=== PATIENT | male | born 1950 | race African-American/Black ===

== ENCOUNTER 2023-07-22 22:51 | Inpatient (IN) | payer BC, MEDICAID ==
[~2023-07-22] VITALS: Ht 182.9 cm; Wt 90.7 kg
[2023-07-22] MEDS: IV NS 0.9% 500 ML BAG IV ONE (23:30)
[2023-07-22] MEDS ORDERED: CEFEPIME 1 GM VIAL ONE (23:33)
[2023-07-22] MEDS ORDERED: ACETAMINOPHEN 650 MG/SUPP.RECT RC ONE (23:33)
[2023-07-22] MEDS ORDERED: VANCOMYCIN 1 GM /D5W 250 ML PB IV ONE (23:33)
[2023-07-22] MEDS: ACETAMINOPHEN 650 MG/SUPP.RECT RC ONE (23:40)
[2023-07-22] MEDS: CEFEPIME 1 GM in IV D5W 50 ML IV ONE (23:40)
[2023-07-22 23:46] LABS: BASOPHILS # (AUTO) 0.1 K/uL (0.0-0.2); BASOPHILS % (AUTO) 0.4 % (0.0-2.0); EOSINOPHILS % (AUTO) 0.3 % (0.0-6.0); HEMATOCRIT 30 % (39-51); HEMOGLOBIN 9.9 g/dL (13.5-17.5); LYMPHOCYTES # (AUTO) 0.6 K/uL (0.8-4.8); MEAN CORPUSCULAR HEMOGLOBIN 26 PG (26.0-33.0); MEAN CORPUSCULAR HGB CONC 33 g/dl (31.0-36.0); MEAN CORPUSCULAR VOLUME 80 fL (80-96); MONOCYTES # (AUTO) 0.5 K/uL (0.1-1.30); MONOCYTES % (AUTO) 3.8 % (2.0-12.0); NEUTROPHILS # (AUTO) 10.8 K/uL (1.8-8.9); NEUTROPHILS % (AUTO) 90.5 % (43.0-81.0); PLATELET COUNT (AUTO) 273 K/uL (150-450); RED BLOOD CELL COUNT(AUTO) 3.81 MIL/uL (4.5-6.0); RED CELL DISTRIBUTION WIDTH 16.8 % (11.5-15.0)
[2023-07-23] MEDS: IV LR 1000 ML 1,000 ML BAG IV ONE
[2023-07-23] MEDS: VANCOMYCIN 1 GM in IV D5W 250 ML IV ONE
[2023-07-23 00:04] LABS: SERUM AMMONIA 20 umol/L (11-32)
[2023-07-23 00:06] LABS: ALANINE AMINOTRANSFERASE 28 U/L (12-78); ALBUMIN 2.1 g/dL (3.4-5.0); ALKALINE PHOSPHATASE 134 U/L (46-116); ASPARTATE AMINOTRANSFERASE 43 U/L (15-37); BILIRUBIN,DIRECT 0.1 mg/dL (0.0-0.2); BILIRUBIN,TOTAL 0.5 mg/dL (0.2-1.0); CALCIUM, SERUM 9.7 mg/dL (8.5-10.1); CARBON DIOXIDE 29 mmol/L (21-32); CHLORIDE 97 mmol/L (98-107); CREATININE 1.5 mg/dL (0.6-1.3); GLUCOSE 113 mg/dL (74-106); POTASSIUM 4.2 mmol/L (3.5-5.1); SODIUM SERUM 136 mmol/L (136-145); TOTAL PROTEIN, SERUM 8.4 g/dL (6.4-8.2); UREA NITROGEN, BLOOD 17 mg/dL (7-18)
[2023-07-23 00:09] LABS: ACETAMINOPHEN <10 ug/ml (10-30); ALCOHOL, BLOOD < 3 mg/dL (0-10); SALICYLATE 1.9 mg/dL (2.8-20.0)
[2023-07-23 00:17] LABS: LACTIC ACID 3.6 mmol/L (0.4-2.0); THYROID STIMULATING HORMONE 2.808 uIU/mL (0.358-3.74)
[2023-07-23 01:13] LABS: APPEARANCE,URINE SLIGHTLY CLOUDY (CLEAR); BILIRUBIN,URINE 1+ (NEGATIVE); BLOOD, URINE 3+ Ery/uL (NEGATIVE); COLOR,URINE DARK YELLOW (YELLOW); KETONES,URINE NEGATIVE (NEGATIVE); LEUKOCYTE ESTERASE ,URINE NEGATIVE (NEGATIVE); NITRITE, URINE NEGATIVE (NEGATIVE); PROTEIN,URINE 3+ mg/dl (NEGATIVE); UGLUCOSE NEGATIVE (NEGATIVE)
[2023-07-23 01:14] LABS: ADD URINE CULTURE NO; BACTERIA,URINE Rare /HPF (None Seen); RBC,URINE 21-50 /HPF (0-2); SQUAMOUS EPITHELIAL CELL,UR Rare /HPF (None Seen)
[2023-07-23 01:30] LABS: BARBITURATE, URINE NEGATIVE (NEGATIVE); BENZODIAZEPINE, URINE NEGATIVE (NEGATIVE); CANNABINOID, URINE NEGATIVE (NEGATIVE); COCCAINE, URINE NEGATIVE (NEGATIVE); PHENCYCLIDINE SCREEN,URINE NEGATIVE (NEGATIVE)
[2023-07-23 01:35] LABS: AMPHETAMINE, URINE POSITIVE (NEGATIVE); OPIATE, URINE POSITIVE (NEGATIVE)
[2023-07-23 01:52] LABS: PHOSPHORUS 3.8 mg/dL (2.5-4.9)
[2023-07-23] MEDS ORDERED: ASPI-1169 PO (05:05)
[2023-07-23] MEDS ORDERED: FERR324T PO (05:05)
[2023-07-23] MEDS ORDERED: CALC-770 PO (05:05)
[2023-07-23] MEDS ORDERED: AMIO100T4 PO (05:05)
[2023-07-23] MEDS ORDERED: APIX5TAB PO (05:05)
[2023-07-23] MEDS ORDERED: MEXI150C16 PO (05:05)
[2023-07-23] MEDS ORDERED: METO-358 PO (05:05)
[2023-07-23] MEDS ORDERED: FERR240T5 PO (05:05)
[2023-07-23] MEDS ORDERED: FURO-145 PO (05:05)
[2023-07-23] MEDS ORDERED: SPIR25TA6 PO (05:05)
[2023-07-23] MEDS ORDERED: SACU1TAB7 PO (05:05)
[2023-07-23] MEDS ORDERED: PANT40TA49 PO (05:05)
[2023-07-23] MEDS ORDERED: ATOR40TA PO (05:05)
[2023-07-23] MEDS ORDERED: FAMO20TA8 PO (05:05)
[2023-07-23] MEDS ORDERED: DOCU250C14 PO (05:05)
[2023-07-23] MEDS ORDERED: CYAN500T64 PO (05:05)
[2023-07-23] MEDS ORDERED: DONE5TAB34 PO (05:05)
[2023-07-23] MEDS: IV NS 0.9% 1,000 ML BAG IV ONE (07:26)
[2023-07-23 08:00] VITALS: BP 95/54; TEMP 98.2; O2SAT 99
[2023-07-23 08:44] LABS: CALCIUM, SERUM 8.6 mg/dL (8.5-10.1); CARBON DIOXIDE 23 mmol/L (21-32); CHLORIDE 104 mmol/L (98-107); CREATININE 1.3 mg/dL (0.6-1.3); GLUCOSE 122 mg/dL (74-106); POTASSIUM 2.9 mmol/L (3.5-5.1); SODIUM SERUM 138 mmol/L (136-145); UREA NITROGEN, BLOOD 15 mg/dL (7-18)
[2023-07-23 08:58] LABS: THYROID STIMULATING HORMONE 1.316 uIU/mL (0.358-3.74)
[2023-07-23 09:10] LABS: BASOPHILS % (AUTO) 0.3 % (0.0-2.0); EOSINOPHILS % (AUTO) 0.1 % (0.0-6.0); HEMATOCRIT 24 % (39-51); HEMOGLOBIN 7.8 g/dL (13.5-17.5); LYMPHOCYTES # (AUTO) 0.6 K/uL (0.8-4.8); LYMPHOCYTES % (AUTO) 5.5 % (20.0-44.0); MEAN CORPUSCULAR HEMOGLOBIN 26 PG (26.0-33.0); MEAN CORPUSCULAR HGB CONC 33 g/dl (31.0-36.0); MEAN CORPUSCULAR VOLUME 79 fL (80-96); MONOCYTES # (AUTO) 0.7 K/uL (0.1-1.30); MONOCYTES % (AUTO) 6.8 % (2.0-12.0); NEUTROPHILS # (AUTO) 8.9 K/uL (1.8-8.9); NEUTROPHILS % (AUTO) 87.3 % (43.0-81.0); PLATELET COUNT (AUTO) 207 K/uL (150-450); RED BLOOD CELL COUNT(AUTO) 3.02 MIL/uL (4.5-6.0); RED CELL DISTRIBUTION WIDTH 16.7 % (11.5-15.0); WHITE BLOOD COUNT (AUTO) 10.2 K/uL (4.3-11.0)
[2023-07-23] MEDS: POTASSIUM CHLORIDE 20 MEQ TAB.PRT.SR PO ONE (09:43)
[2023-07-23] MEDS: CEFTRIAXONE 1 G in IV D5W 50 ML IV SCH (10:04)
[2023-07-23 12:00] VITALS: BP 110/66; TEMP 98.2; O2SAT 99
[2023-07-23 16:00] VITALS: BP 118/66; TEMP 98.2; O2SAT 100
[2023-07-23] MEDS: ATORVASTATIN 40 MG TABLET PO SCH (16:23)
[2023-07-23] MEDS: FAMOTIDINE (20 MG) 20 MG TABLET PO SCH (16:23)
[2023-07-23 20:00] VITALS: BP 98/53; TEMP 97.9; O2SAT 99
[2023-07-23] MEDS: DOCUSATE SODIUM 250 MG CAPSULE PO SCH (20:46)
[2023-07-23] MEDS: AMIODARONE HCL 200 MG TABLET PO SCH (20:52)
[2023-07-23] MEDS: APIXABAN 5 MG TABLET PO SCH (20:55)
[2023-07-23] MEDS: METOPROLOL SUCCINATE 50 MG TAB.SR.24H PO SCH (20:56)
[2023-07-23] MEDS: ENTRESTO PO SCH (20:56)
[2023-07-23] MEDS: MEXILETINE 150 MG PO SCH (20:56)
[2023-07-23] MEDS ORDERED: MEXILETINE HCL 150 MG CAPSULE PO SCH (21:00)
[2023-07-23] MEDS ORDERED: SACUBITRIL/VALSARTAN 1 EACH TABLET PO SCH (21:00)
[2023-07-24] VITALS (9 sets, daily range): BP systolic 107–121; BP diastolic 63–72; TEMP 97.3–98.3; O2SAT 96–100
[2023-07-24] MEDS: PANTOPRAZOLE 40 MG TABLET.DR PO SCH (08:30)
[2023-07-24] MEDS: CYANOCOBALAMIN 500 MCG TABLET PO SCH (08:30)
[2023-07-24] MEDS: ASPIRIN 81 MG TAB.CHEW PO SCH (08:30)
[2023-07-24] MEDS: DONEPEZIL 5 MG TABLET PO SCH (08:30)
[2023-07-24] MEDS: FERROUS SULFATE (325 MG) 325 MG/TAB TABLET PO SCH (08:31)
[2023-07-24] MEDS: SPIRONOLACTONE 25 MG TABLET PO SCH (08:31)
[2023-07-24] MEDS: POTASSIUM CHLORIDE 20 MEQ TAB.PRT.SR PO ONE (08:49)
[2023-07-24] MEDS: CEFTRIAXONE 2 G in IV D5W 100 ML IV SCH (10:43)
[2023-07-24] MEDS: ACETYLCYSTEINE 20% SOLN 800 MG/4 ML VIAL NEB SCH (23:28)
[2023-07-24] MEDS: ALBUTEROL FS 2.5 MG/0.5 ML VIAL.NEB NEB PRN (23:29)
[2023-07-25] VITALS (9 sets, daily range): BP systolic 100–125; BP diastolic 55–72; TEMP 97.5–98.8; O2SAT 97–100
[2023-07-25 08:14] LABS: BASOPHILS % (AUTO) 0.7 % (0.0-2.0); EOSINOPHILS # (AUTO) 0.1 K/uL (0.0-0.7); EOSINOPHILS % (AUTO) 1.4 % (0.0-6.0); HEMATOCRIT 25 % (39-51); LYMPHOCYTES # (AUTO) 0.6 K/uL (0.8-4.8); LYMPHOCYTES % (AUTO) 10.5 % (20.0-44.0); MEAN CORPUSCULAR HEMOGLOBIN 26 PG (26.0-33.0); MEAN CORPUSCULAR HGB CONC 32 g/dl (31.0-36.0); MEAN CORPUSCULAR VOLUME 80 fL (80-96); MONOCYTES # (AUTO) 0.5 K/uL (0.1-1.30); MONOCYTES % (AUTO) 9.5 % (2.0-12.0); NEUTROPHILS # (AUTO) 4.4 K/uL (1.8-8.9); NEUTROPHILS % (AUTO) 77.9 % (43.0-81.0); PLATELET COUNT (AUTO) 220 K/uL (150-450); RED CELL DISTRIBUTION WIDTH 16.6 % (11.5-15.0); WHITE BLOOD COUNT (AUTO) 5.7 K/uL (4.3-11.0)
[2023-07-25 08:52] LABS: CALCIUM, SERUM 9.1 mg/dL (8.5-10.1); CREATININE 1.1 mg/dL (0.6-1.3)
[2023-07-26] VITALS (8 sets, daily range): BP systolic 97–110; BP diastolic 56–69; TEMP 97.3–98.2; O2SAT 98–100
[2023-07-26] MEDS ORDERED: IOHEXOL-300 100 ML VIAL IV ONE (14:35)
[2023-07-26] MEDS ORDERED: CT SWABBABLE VALVE TRANS SET 1 EA INFUS.SET MC ONE (14:35)
[2023-07-26] MEDS ORDERED: IV NS 0.9% 250 ML IV ONE (14:35)
[2023-07-27] VITALS (12 sets, daily range): BP systolic 91–100; BP diastolic 56–67; TEMP 97.7–98.1; O2SAT 98–100
[2023-07-27 12:29] LABS: INR 1.15 (0.91-1.10); PROTHROMBIN TIME 12.1 SECS (9.2-11.1)
[2023-07-27] MEDS ORDERED: CEFT2VIA14 IV (13:51)
[2023-07-27] MEDS: CEFTRIAXONE 2 G in IV D5W 100 ML IV SCH (15:57)
[2023-07-28] VITALS (7 sets, daily range): BP systolic 95–101; BP diastolic 56–67; TEMP 97.5–98.6; O2SAT 97–100
== END 2023-07-28 19:05 | DRG 917 ==
LOC: ER 22:57 → TELE1 07-23 05:52 → MEDSG1 07-27 07:04
PROVIDERS: ADMIT Internal Medicine; ATTEND Internal Medicine
PROC: 02HV33Z Insertion of Infusion Device into Superior Vena Cava, Percutaneous Approach (ICD-10-PCS; principal; 2023-07-27)
PROC: B548ZZA Ultrasonography of Superior Vena Cava, Guidance (ICD-10-PCS; 2023-07-27)
DX: T40.2X1A Poisoning by other opioids, accidental (unintentional), initial encounter (principal); G06.2 Extradural and subdural abscess, unspecified; G92.8 Other toxic encephalopathy; I50.42 Chronic combined systolic (congestive) and diastolic (congestive) heart failure; N39.0 Urinary tract infection, site not specified; N17.9 Acute kidney failure, unspecified; E87.20 Acidosis, unspecified; I42.8 Other cardiomyopathies; M46.27 Osteomyelitis of vertebra, lumbosacral region; R78.81 Bacteremia; I11.0 Hypertensive heart disease with heart failure; I50.9 Heart failure, unspecified; E78.5 Hyperlipidemia, unspecified; K21.9 Gastro-esophageal reflux disease without esophagitis; D64.9 Anemia, unspecified; E86.0 Dehydration; E87.6 Hypokalemia; Z20.822 Contact with and (suspected) exposure to COVID-19; Z79.01 Long term (current) use of anticoagulants; M46.47 Discitis, unspecified, lumbosacral region; Z79.82 Long term (current) use of aspirin; Z95.810 Presence of automatic (implantable) cardiac defibrillator; I48.0 Paroxysmal atrial fibrillation; Y92.009 Unspecified place in unspecified non-institutional (private) residence as the place of occurrence of the external cause; I95.89 Other hypotension
CPT/HCPCS: 36415; 70450-TC; 71045-TC; 72132-TC; 80048-TC; 80076-TC; 81001; 82140-TC; 82728-TC; 82962-TC; 83540-TC; 83605-TC; 83735-TC; 83880; 84100-TC; 84443-TC; 84484-TC; 85025-TC; 85610-TC; 85652-TC; 86140-TC; 87040-TC; 87086-TC; 87186-TC; 93307-TC; 94760-TC; 94762-TC; 94799-TC; 97110-TC; 97530-TC; A4223; G0378; G0480; J0692; J0696; J3370; J7030; J7040; J7050; J7060; J7120; Q9967